=== PATIENT | female | born 1980 | race Caucasian/White ===

== ENCOUNTER 2024-07-22 08:25 | Outpatient (CLI) | payer OTHER, SELFPAY | END 2024-07-22 08:26 | disposition home or self-care (01) | LOC: NFLDREF 07-28 11:04 | PROVIDERS: Visit Provider Advanced Practice Midwife | DX: N39.0 Urinary tract infection, site not specified (principal); B96.20 Unspecified Escherichia coli [E. coli] as the cause of diseases classified elsewhere | CPT/HCPCS: 87086 ==

== ENCOUNTER 2024-07-29 14:29 | Outpatient (CLI) | payer OTHER, SELFPAY ==
--- NOTE | 2024-07-29 15:00 | CRLHL7_ITS ---
For Patients: As a result of the Century Cures Act, medical imaging exams and procedure reports are released immediately into your electronic medical record. You may view this report before your referring provider. If you have questions, please contact your health care provider. INDICATION: IUD, bleeding COMPARISON: 05/26/2024 TECHNIQUE: 2D vaughn-scale and color Doppler images were acquired of the pelvis using a transabdominal and transvaginal approach. Transvaginal imaging performed to better visualize the endometrial stripe and ovaries. FINDINGS: Sonographic images demonstrate a normal size and smooth outer contour of the uterus. Uterus measures 7.7 cm in length by 3.1 cm in AP diameter by 4.1 cm in transverse dimension. The myometrium has a normal uniform echotexture. The endometrial lining measures 5.8 mm in composite thickness. IUD is present in good position within the endometrial canal. Ovoid hypoechoic structure with some internal vascularity present in the endocervical region measuring 1.3 x 0.6 x 1.6 cm. The ovaries are not visualized due to overlying bowel gas. There are no suspicious fluid collections within the cul-de-sac. IMPRESSION: Normal position of an IUD within the endometrial canal. Endometrium measures 5.8 millimeters. Possible endocervical polyp measuring 1.3 x 0.6 x 1.6 cm. Dictated by Leonel Cano MD @ 07/29/2024 3:31:06 PM (Electronically Signed)
== END 2024-07-29 14:30 | disposition home or self-care (01) ==
LOC: US 14:29
PROVIDERS: Visit Provider Obstetrics & Gynecology
DX: R10.2 Pelvic and perineal pain (principal); N93.9 Abnormal uterine and vaginal bleeding, unspecified; Z97.5 Presence of (intrauterine) contraceptive device
CPT/HCPCS: 76830; 76856

== ENCOUNTER 2024-08-01 15:12 | Outpatient (CLI) | payer OTHER, SELFPAY | END 2024-08-01 15:13 | disposition home or self-care (01) | LOC: NFLDREF 08-05 01:09 | PROVIDERS: Visit Provider Obstetrics & Gynecology | DX: N39.0 Urinary tract infection, site not specified (principal) | CPT/HCPCS: 87086 ==